=== PATIENT | female | born 1970 | race Caucasian/White ===

== ENCOUNTER 2016-12-26 21:01 | Emergency (ER) | payer MEDICAID, OTHER ==
[~2016-12-26 21:01] MED LIST: CEPHALEXIN 500 MG CAP PO SCH; SULFAMETHOX/TMP 800/160 MG 1 TAB PO SCH
[2016-12-26 21:22] VITALS: RESP 16
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
[2016-12-26 22:44] VITALS: BP 101/78; PULSE 76; TEMP 98.1; O2SAT 97
== END 2016-12-26 22:45 | disposition home or self-care (01) ==
PROC: 0H9FXZZ Drainage of Right Hand Skin, External Approach (ICD-10-PCS; principal; 2016-12-26)
DX: L02.511 Cutaneous abscess of right hand (principal); L03.113 Cellulitis of right upper limb; F17.200 Nicotine dependence, unspecified, uncomplicated

== ENCOUNTER 2016-12-27 17:48 | Emergency (ER) | payer MEDICAID ==
[2016-12-27 17:53] VITALS: BP 117/47; RESP 17; O2SAT 94
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
[2016-12-27 18:11] VITALS: PULSE 85; TEMP 97.7
== END 2016-12-27 18:11 | disposition home or self-care (01) ==
DX: L08.9 Local infection of the skin and subcutaneous tissue, unspecified (principal); F17.200 Nicotine dependence, unspecified, uncomplicated